=== PATIENT | female | born 1990 | race Caucasian/White ===

== ENCOUNTER 2020-04-20 17:55 | Emergency (ER) | payer OTHER ==
[2020-04-20 18:00] VITALS: BMI 22.6
[2020-04-20] MEDS ORDERED: ACETAMINOPHEN 500 MG TABLET (FP) PO ONE (18:34)
[2020-04-20] MEDS ORDERED: ACETAMINOPHEN 325 MG TABLET (FP) ONE (18:43)
[2020-04-20 18:47] LABS: BASO % 0.3 % (0-2.0); EOS % 1.6 % (0-4.5); HEMATOCRIT 36.6 % (32.4-45.2); HEMOGLOBIN 12.5 GM/dL (10.7-15.3); LYMPH % 31.1 % (8-40); MCH 31.1 pg (25.7-33.7); MCHC 34.2 g/dl (32.0-36.0); MEAN CELL VOLUME 90.8 fl (80-96); MEAN PLT VOLUME 9.8 fl (7.5-11.1); MONO % 8.9 % (3.8-10.2); NEUT % 58.1 % (42.8-82.8); PLATELET COUNT 179 K/MM3 (134-434); RBC 4.03 M/mm3 (3.60-5.2); RDW 12.6 % (11.6-15.6); WHITE BLOOD COUNT 5.9 K/mm3 (4.0-10.0)
[2020-04-20 18:47] LABS: URINE APPEARANCE Clear; URINE BILIRUBIN Negative (NEGATIVE); URINE COLOR Yellow; URINE GLUCOSE (UA) Negative (NEGATIVE); URINE KETONE Negative (NEGATIVE); URINE LEUK ESTERASE Negative (NEGATIVE); URINE NITRITE Negative (NEGATIVE); URINE PROTEIN Negative (NEGATIVE); URINE UROBILINOGEN 0.2 mg/dL (0.2-1.0)
[2020-04-20 19:06] LABS: ALBUMIN 3.5 g/dl (3.4-5.0); BILIRUBIN,TOTAL 0.3 mg/dL (0.2-1); BLOOD UREA NITROGEN 10.6 mg/dL (7-18); CALCIUM 8.9 mg/dL (8.5-10.1); CREATININE 0.8 mg/dL (0.55-1.3); POTASSIUM 4.1 mmol/L (3.5-5.1); TOT PROT 7.1 g/dl (6.4-8.2)
[2020-04-20 22:14] VITALS: BP 117/61; PULSE 83; TEMP 98.1
== END 2020-04-20 22:14 | disposition home or self-care (01) ==
LOC: JER 17:55
DX: O20.9 Hemorrhage in early pregnancy, unspecified (principal); Z3A.01 Less than 8 weeks gestation of pregnancy
CPT/HCPCS: 36415; 76817-TC; 80053; 81003; 84702; 85025; 86850; 86900; 86901; 87070; 87077; 87086; 87205; 87491; 87591; 99284-25

== ENCOUNTER 2020-12-13 02:20 | Inpatient (IN) | payer OTHER ==
[2020-12-13] MEDS ORDERED: PROMETHAZINE HCL 25 MG/1 ML VIAL IVPB PRN (03:30)
[2020-12-13] MEDS ORDERED: BUTORPHANOL TARTRATE 2 MG/ML VIAL IVPB PRN (03:30)
[2020-12-13] MEDS ORDERED: AMPICILLIN - 2 GM in SODIUM CHLORIDE 100 ML IVPB ONE (03:50)
[2020-12-13] MEDS ORDERED: SODIUM CHLORIDE 100 ML IVPB ONE (03:50)
[2020-12-13] MEDS ORDERED: AMPICILLIN SODIUM 2 GM VIAL ONE (03:50)
[2020-12-13] MEDS: ELECTROLYTE-148 SOLN 1,000 ML IV SCH (04:00)
[2020-12-13 04:16] LABS: BASO % 0.3 % (0-2.0); EOS % 0.5 % (0-4.5); HEMATOCRIT 31.5 % (32.4-45.2); HEMOGLOBIN 10.9 GM/dL (10.7-15.3); LYMPH % 17.7 % (8-40); MCH 32.2 pg (25.7-33.7); MCHC 34.7 g/dl (32.0-36.0); MEAN CELL VOLUME 92.9 fl (80-96); MEAN PLT VOLUME 11.7 fl (7.5-11.1); MONO % 7.9 % (3.8-10.2); NEUT % 73.6 % (42.8-82.8); PLATELET COUNT 95 K/MM3 (134-434); RBC 3.38 M/mm3 (3.60-5.2); RDW 13.1 % (11.6-15.6); WHITE BLOOD COUNT 7.9 K/mm3 (4.0-10.0)
[2020-12-13 04:28] LABS: INR 0.97 (0.83-1.09); PROTHROMBIN TIME (PATIENT) 11.9 SEC (9.7-13.0)
[2020-12-13 04:30] LABS: POTASSIUM 4.3 mmol/L (3.5-5.1)
[2020-12-13 04:31] LABS: ACTIVATED PTT 27.9 SECONDS (25.2-36.5)
[2020-12-13 04:32] LABS: ALBUMIN 2.4 g/dl (3.4-5.0); BLOOD UREA NITROGEN 10.8 mg/dL (7-18); CALCIUM 8.1 mg/dL (8.5-10.1)
[2020-12-13 04:35] LABS: CREATININE 0.7 mg/dL (0.55-1.3)
[2020-12-13 04:37] LABS: BILIRUBIN,TOTAL 0.4 mg/dL (0.2-1); TOT PROT 5.4 g/dl (6.4-8.2)
[2020-12-13] MEDS ORDERED: BUTORPHANOL TARTRATE 2 MG/ML VIAL ONE (04:39)
[2020-12-13] MEDS ORDERED: PROMETHAZINE HCL 25 MG/1 ML VIAL ONE (04:39)
[2020-12-13 05:01] LABS: SYPHILIS W/ RPR CONF NON-REACTIVE (NONREACTIVE)
[2020-12-13 05:12] VITALS: BMI 25.5
[2020-12-13 05:44] LABS: HIV INTERPRETATION NEGATIVE (NEGATIVE)
[2020-12-13] MEDS: AMPICILLIN - 1 GM in SODIUM CHLORIDE 100 ML IVPB SCH ×2 (08:00→22:25)
[2020-12-13] MEDS ORDERED: PCA PUMP NR ONE (08:58)
[2020-12-13] MEDS ORDERED: FENTANYL/BUPIVACAINE/NS/PF - PCEA - 50 ML DISP.SYRIN EP ONE (08:58)
[2020-12-13] MEDS ORDERED: BUPIVACAINE HCL/PF 0.25% (2.5MG/ML) 10 ML VIAL ONE ×3 (10:12→13:46)
[2020-12-13] MEDS ORDERED: NALOXONE HCL 0.4 MG/ML VIAL IVPUSH PRN (10:23)
[2020-12-13] MEDS ORDERED: FENTANYL/BUPIVACAINE/NS/PF - PCEA - 50 ML DISP.SYRIN EP SCH (10:30)
[2020-12-13] MEDS ORDERED: OXYTOCIN 20 UNITS in 0.9% NS 20 UNIT/1,000 ML INFUS.BAG IV ONE ×2 (13:27→17:32)
[2020-12-13] MEDS ORDERED: LIDOCAINE HCL 1% PRESERVATIVE FREE - 30ML VIAL ONE (13:27)
[2020-12-13] MEDS ORDERED: CEFAZOLIN 2 GM/D5W 2 GM/50 ML ML IVPB ONE ×2 (15:50→16:00)
[2020-12-13] MEDS ORDERED: METHYLERGONOVINE MALEATE 0.2 MG/1 ML AMP IM ONE (16:00)
[2020-12-13 17:05] LABS: CORD HCO3 22.4 mmHg (20-29); CORD PCO2 76.3 mmHg (30-78); CORD pH 7.086 (7.14-7.44)
[2020-12-13 17:09] LABS: CORD BASE EXCESS -8.3 mmol/L (0-2); CORD PCO2 66.1 mmHg (30-78); CORD pH 7.141 (7.14-7.44)
[2020-12-13] MEDS ORDERED: ACETAMINOPHEN 325 MG TABLET (FP) ONE (18:29)
[2020-12-13] MEDS ORDERED: IBUPROFEN 600 MG TABLET (FP) PO ONE ×2 (18:29→19:45)
[2020-12-13] MEDS ORDERED: ACETAMINOPHEN 325 MG TABLET (FP) PO ONE (19:45)
[2020-12-13] MEDS: FENTANYL/BUPIVACAINE/NS/PF - PCEA - 50 ML DISP.SYRIN EP SCH (22:24)
[2020-12-14] MEDS: AMPICILLIN - 1 GM in SODIUM CHLORIDE 100 ML IVPB SCH ×6 (00:15→22:50)
[2020-12-14] MEDS: ELECTROLYTE-148 SOLN 1,000 ML IV SCH (03:55)
[2020-12-14] MEDS: IBUPROFEN 600 MG TABLET (FP) PO PRN ×2 (10:35→20:10)
[2020-12-14] MEDS: ACETAMINOPHEN 325 MG TABLET (FP) PO PRN ×2 (10:35→20:10)
[2020-12-14] MEDS: FENTANYL/BUPIVACAINE/NS/PF - PCEA - 50 ML DISP.SYRIN EP SCH (19:11)
[2020-12-15] MEDS: ELECTROLYTE-148 SOLN 1,000 ML IV SCH (04:55)
[2020-12-15] MEDS: AMPICILLIN - 1 GM in SODIUM CHLORIDE 100 ML IVPB SCH (04:55)
[2020-12-15] MEDS: ACETAMINOPHEN 325 MG TABLET (FP) PO PRN (09:11)
[2020-12-15] MEDS: IBUPROFEN 600 MG TABLET (FP) PO PRN (09:11)
[2020-12-15 10:19] VITALS: BP 126/77; PULSE 97; TEMP 97.9
== END 2020-12-15 14:00 | disposition home or self-care (01) | DRG 560 ==
LOC: JDEL 02:20 → JLDR 03:30 → J3N 20:20
PROVIDERS: ADMIT Obstetrics & Gynecology; ATTEND Obstetrics & Gynecology
PROC: 10D07Z6 Extraction of Products of Conception, Vacuum, Via Natural or Artificial Opening (ICD-10-PCS; principal; 2020-12-13)
PROC: 10907ZC Drainage of Amniotic Fluid, Therapeutic from Products of Conception, Via Natural or Artificial Opening (ICD-10-PCS; 2020-12-13)
DX: O76 Abnormality in fetal heart rate and rhythm complicating labor and delivery (principal); O75.81 Maternal exhaustion complicating labor and delivery; O77.0 Labor and delivery complicated by meconium in amniotic fluid; Z3A.39 39 weeks gestation of pregnancy; Z37.0 Single live birth
CPT/HCPCS: 36415; 36600; 59409; 80053; 82803; 85025; 85610; 85730; 86762; 86780; 86850; 86900; 86901; 87340; 87389; C9803; U0003

== ENCOUNTER 2024-10-04 09:56 | Emergency (ER) | payer OTHER ==
[2024-10-04 10:59] VITALS: BP 141/90; PULSE 88; RESP 18; TEMP 98.8; BMI 26.6
[2024-10-04 11:05] LABS: HEMATOCRIT 38.6 % (32.4-45.2); HEMOGLOBIN 13.2 G/dL (10.7-15.3); MCH 30.7 pg (25.7-33.7); MCHC 34.1 g/dl (32.0-36.0); MEAN CELL VOLUME 89.8 fl (80-96); MEAN PLT VOLUME 10.2 fl (7.5-11.1); PLATELET COUNT 188.2 10^3/uL (134-434); RDW 12.8 % (11.6-15.6); WHITE BLOOD COUNT 6.2 10^3/uL (4.0-10.8)
[2024-10-04 11:06] LABS: ALBUMIN 4.2 g/dl (3.4-5.0); ALK PHOS 61 U/L (45-117); ANION GAP 7 mmol/L (4-13); BILIRUBIN,TOTAL 0.3 mg/dl (0.2-1); CALCIUM 9.6 mg/dl (8.5-10.1); CHLORIDE 103 mmol/L (98-107); CO2 28 mmol/L (21-32); CREATININE 0.9 mg/dl (0.6-1.3); GLUCOSE,RANDOM 99 mg/dl (74-106); POTASSIUM 4.1 mmol/L (3.5-5.1); SGOT/AST 11 U/L (15-37); SGPT/ALT 6 U/L (7-52); SODIUM 138 mmol/L (136-145); TOT PROT 6.7 g/dl (6.4-8.2)
[2024-10-04 11:08] LABS: PLATELET ESTIMATE ADEQUATE
[2024-10-04] MEDS ORDERED: ACETAMINOPHEN 325 MG TABLET (FP) ONE (12:57)
[2024-10-04] MEDS: ACETAMINOPHEN 325 MG TABLET (FP) PO ONE (13:01)
== END 2024-10-04 13:16 | disposition home or self-care (01) ==
LOC: FER 09:56
DX: R51.9 Headache, unspecified (principal); R42 Dizziness and giddiness; R11.0 Nausea; T58.11XA Toxic effect of carbon monoxide from utility gas, accidental (unintentional), initial encounter; Z20.822 Contact with and (suspected) exposure to COVID-19
CPT/HCPCS: 0241U-QW; 36415; 80053; 82375; 82550; 83605; 84484; 84703; 85027; 93005; 99284-25

== ENCOUNTER 2025-08-06 13:14 | Emergency (ER) | payer OTHER ==
[2025-08-06 13:22] VITALS: BP 123/61; PULSE 78; RESP 18; TEMP 98.4; BMI 25.5
[2025-08-06 15:22] LABS: ABSOLUTE IMMATURE GRANULOCYTES 0.03 x10^3/uL (0.0-0.031); BASOPHILS # 0.02 x10^3/uL (0.01-0.08); EOSINOPHIL % 1.7 % (0.7-5.8); EOSINOPHILS # 0.11 x10^3/uL (0.04-0.36); MCHC 34.4 g/dl (32.2-35.5); MEAN CELL VOLUME 89.6 fl (79.4-94.8); MEAN PLT VOLUME 10.9 fl (9.4-12.3); MONOCYTE # 0.43 x10^3/uL (0.24-0.86); MONOCYTE % 6.8 % (4.7-12.5); RDW 11.9 % (12.1-16.8); URINE APPEARANCE CLEAR; URINE BILIRUBIN NEGATIVE (NEGATIVE); URINE COLOR YELLOW; URINE GLUCOSE (UA) NEGATIVE (NEGATIVE); URINE KETONE NEGATIVE (NEGATIVE); URINE LEUK ESTERASE NEGATIVE (NEGATIVE); URINE NITRITE NEGATIVE (NEGATIVE); URINE PROTEIN NEGATIVE (NEGATIVE); URINE UROBILINOGEN 0.2 mg/dL (0.2-1.0)
[2025-08-06 15:34] LABS: INR 1.16 (0.83-1.09); PROTHROMBIN TIME (PATIENT) 12.6 SEC (9.7-13.0)
[2025-08-06 15:36] LABS: ACTIVATED PTT 27.4 SECONDS (25.2-36.5)
[2025-08-06 15:38] LABS: GLUCOSE,RANDOM 91.0 mg/dL (74-106); TOT PROT 6.8 g/dl (6.4-8.2)
[2025-08-06 15:39] LABS: CO2 25.0 mmol/L (21-32)
[2025-08-06 15:41] LABS: ALK PHOS 44.0 U/L (40-150)
[2025-08-06 15:43] LABS: SGOT/AST 15.0 U/L (5-34); SGPT/ALT 9.0 U/L (0-55)
[2025-08-06 15:44] LABS: CREATININE 0.69 mg/dL (0.55-1.3)
[2025-08-06 16:04] LABS: HCV DIAGNOSTIC IN-HOUSE W/RFLX NON-REACTIVE (NONREACTIVE); HIV INTERPRETATION NEGATIVE (NEGATIVE)
== END 2025-08-06 16:43 | disposition home or self-care (01) ==
LOC: JER 13:14
DX: O20.9 Hemorrhage in early pregnancy, unspecified (principal); Z3A.01 Less than 8 weeks gestation of pregnancy
CPT/HCPCS: 36415; 76817-TC; 80053; 81003; 84702; 85025; 85610; 85730; 86803; 86850; 86900; 86901; 87086; 87389; 99284-25